=== PATIENT | male | born 1965 | race Caucasian/White ===

== ENCOUNTER 2023-10-28 13:01 | Emergency (ER) | payer BC, SELFPAY ==
[2023-10-28] MEDS ORDERED: diphenhydrAMINE 25 MG CAP ONE (13:57)
[2023-10-28] MEDS ORDERED: Amoxicillin/Potassium Clav 875 MG TAB ONE (13:57)
== END 2023-10-28 14:15 ==
LOC: NAV ERS 13:01
DX: T22.20XA Burn of second degree of shoulder and upper limb, except wrist and hand, unspecified site, initial encounter (principal); T31.0 Burns involving less than 10% of body surface; F17.210 Nicotine dependence, cigarettes, uncomplicated; X08.8XXA Exposure to other specified smoke, fire and flames, initial encounter
CPT/HCPCS: 99283

== ENCOUNTER 2024-05-06 14:17 | Outpatient (CLI) | payer OTHER | END 2024-05-06 14:18 | disposition home or self-care (01) | LOC: NAV RAD 14:17 | PROVIDERS: ATTEND Family Medicine | DX: M25.561 Pain in right knee (principal); M25.562 Pain in left knee; M54.59 Other low back pain | CPT/HCPCS: 72100 ==